=== PATIENT | male | born 1965 | race Caucasian/White ===

== ENCOUNTER 2024-05-24 13:08 | Emergency (ER) | payer SELFPAY ==
[2024-05-24 13:16] VITALS: BP 112/75; PULSE 58; RESP 18; O2SAT 96
--- NOTE | 2024-05-24 13:17 | EDNOTE_ITS ---
<Statement entered by Tierra Darby MD - 05/28/24 09:20> As co-signing physician, I was present and available for consult prn. I concur with the plan and care as documented by the midlevel provider. ED General RME/HPI General Chief complaint: Medical Clearance Stated complaint: MEDICAL CLEARANCE, LOW BP Time Seen by Provider: 05/24/24 13:14 Arrival date/time: 05/24/24 13:08 Medical clearance for hypotension. PD patient to the emergency room for hypotension at 90/60, after multiple episodes. PD is not sure if there are drugs involved however the patient has pinpoint pupils, the patient is compliant not agitated and cooperative. Related Data Allergies Allergy/AdvReac Type Severity Reaction Status Date / Time Unable to Assess Allergy Verified 05/24/24 13:16 Review of Systems Review of Systems Narrative Review of Systems: GEN: No fever, no chills, no weight loss EYES: No discharge, no visual changes, no pain HEENT: No ear pain, no congestion, no sore throat PULM: No shortness of breath, no cough, no congestion CV: No chest pain, no dyspnea on exertion, no palpitations GI: No nausea, no vomiting, no diarrhea, no pain, no constipation : No frequency, no urgency, no dysuria MUSC/SKEL: No joint pain, no back pain SKIN: No rash PSYCH: No hallucinations, no depression HEME/LYMPH: No easy bleeding or bruising tendencies NEURO: No weakness, no headache Past Medical History Social History SMOKING STATUS: Current every day smoker ED Exam Narrative Physical exam: [General: Ill kempt, mildly disheveled, appears not in any acute distress Head normocephalic HEENT: Within acceptable limits Neck is supple nontender Chest equal chest rise nontender to palpation Respiratory: Clear to auscultation no wheezes crackles or rubs CV: Rate rhythm is regular no murmurs rubs or clicks Abdomen is distended secondary to body habitus soft nontender no masses positive bowel sounds all 4 quadrants Back: No CVA tenderness no spinous process tenderness from cervical spine thoracic and lumbar spine Skin: Intact no petechiae rash induration ulceration or crepitus Extremities: Moving all extremity against resistance cap refill less than 2 seconds neurosensory intact Neuro: Awake alert oriented x2, person and place, Glascow coma 15 no focal deficits] Course Quality Measures none MDM Patient data External records reviewed:: [facility] previous records Clinical information provided by:: patient and law enforcement Social determinants that could affect healthcare access:: none Patient has the following chronic illnesses:: None How is presenting disease/condition affected by chronic disease/condition?: uneffected by Evaluation data The following diagnostics were reviewed and interpreted by me:: other (specify) (None) Lab and/or radiology exams considered but not ordered:: None Interpretation Summary: Repeat blood pressures in both arms show 111/72 and 112/75 patient is asymptomatic we will clear for incarceration. Medications Medications considered but not ordered:: None Medication administrations:: None Consultations Consultation(s) initiated? (list below): No Diagnosis Differential Diagnosis ED Complaint MDM: Hypotension hypertension altered mental status Most likely diagnosis given after review of the tests above:: Medically cleared for incarceration Admission Indicated Admission indicated?: not indicated Explain why admission is indicated or not indicated:: Stable for discharge to [facility] Admission Request Was there a request for admission?: No Disposition Plan Disposition Plan: Discharge Discharge Attestation Discharge Attestation: The patient and all family members were given an opportunity to ask questions and understood the discharge instructions. Discharge instructions specifically effects, indications for sooner follow up or return to the emergency department, and the expected course of current diagnosis. Patient condition: Stable Medical Decision Making Differential Diagnosis Differential Diagnosis: Hypotension hypertension altered mental status Discharge Plan Plan Patient Disposition: Half-Way/Court/Law Patient condition on transfer: Stable Problem List Clinical Impression: Medical clearance for incarceration Patient/Caregiver Discharge Instructions Print Language: Uzbek LENORA/LILI Supervising Physician LENORA/LILI Supervising Physician: Luis Verdugo ENP
[2024-05-24 13:20] VITALS: BP 111/72; PULSE 57; RESP 18; TEMP 36.2; O2SAT 96
== END 2024-05-24 13:46 ==
LOC: SERX 13:44
PROVIDERS: Emergency Provider Emergency Medicine
DX: Z02.89 Encounter for other administrative examinations (principal); I95.9 Hypotension, unspecified
CPT/HCPCS: 99281